=== PATIENT | female | born 1980 | race Two or more races ===

== ENCOUNTER 2024-09-23 21:46 | Emergency (ER) | payer MEDICAID ==
[~2024-09-23] VITALS: Ht 157.5 cm; Wt 81.8 kg
[2024-09-23 21:55] VITALS: BP 120/72; PULSE 115; RESP 18; TEMP 98.9; O2SAT 97
[2024-09-23] MEDS ORDERED: FAMC500T12 PO (22:40)
--- NOTE | 2024-09-23 22:41 | ED.PDOC ---
History of Present Illness(SKN HPI Comments 44 year old female presents to ER with complaints of wound check. Patient states that she has a "cold sore" to left upper lip x 1 day that she would like to have evaluated in ER. Patient also reports a dry cough x 1 day. Denies any pain. Denies use of medications for current symptoms. Denies fever, body aches, chills, sore throat, n/v, shortness of breath, numbness/tingling or any further symptoms/complaints Chief Complaint: Rash Time Seen by MD: 22:04 Primary Care Provider: UNKNOWN History of Present Illness: Nurses Notes, Medications, Allergies Allergies: Coded Allergies: NO KNOWN ALLERGIES (Unverified , 09/23/24) Home Meds Active Scripts Famciclovir (Famciclovir) 500 Mg Tab, 500 MG PO BID for 7 Days, #14 TAB 0 Refills Prov:JOHN ESTRELLA 09/23/24 Information Source: Patient Mode of Arrival: Ambulatory Past Medical History PAST MEDICAL HISTORY: Schizophrenia Surgical History: Cholecystectomy 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 NARROW FABRIC CALENDERER History Family History Family History: Unknown Social History Smoker: Non-Smoker Alcohol: Denies ETOH Use Drugs: Denies Drug Use Lives In: Home Constitutional: denies: chills, diaphoresis, fatigue, fever, malaise, sweats, weakness, others EENTM: reports: others (As stated in HPI) Respiratory: reports: others (As stated in HPI) Cardiovascular: denies: chest pain, dizzy spells, diaphoresis, Dyspnea on exertion, edema, irregular heart beat, left arm pain, lightheadedness, palpitations, PND, syncope, others Gastrointestinal: denies: abdomen distended, abdominal pain, blood streaked bowels, constipated, diarrhea, dysphagia, difficulty swallowing, hematemesis, melena, nausea, poor appetite, poor fluid intake, rectal bleeding, rectal pain, vomiting, others Genitourinary: denies: abnormal vagina bleeding, burning, dyspareunia, dysuria, flank pain, frequency, hematuria, incontinence, pain, , vagina discharge, urgency, others Neurological: denies: dizziness, fainting, headache, left sided numbness, left sided weakness, numbness, paresthesia, pre-existing deficit, right sided numbness, right sided weakness, seizure, speech problems, tingling, tremors, weakness, others Musculoskeletal: denies: back pain, gout, joint pain, joint swelling, muscle pain, muscle stiffness, neck pain, others Integumetry: reports: others (As stated in HPI) Allergic/Immunocompromised: denies: Difficulty Healing, Frequent Infections, Hives, Itching, others Hematologic/Lymphatic: denies: anemia, blood clots, easy bleeding, easy bruising, swollen glands, others Endocrine: denies: excessive hunger, excessive sweating, excessive thirst, excessive urination, flushing, intolerance to cold, intolerance to heat, unexplained weight gain, unexplained weight loss, others Psychiatric: denies: anxiety, bipolar disorder, depression, hopeless, panic disorder, schizophrenia, sleepless, suicidal, others Physical Exam General Appearance: No Apparent Distress, Obese HEENT: PERRL/EOMI, Pharynx Normal, TMs Normal, Other (1- 1cm umbilicated erythemic vesicle with mild crusting noted surrounding tita border of left upper lip. 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 Was a procedure done?: No Sedation Sedation?: No Differential Diagnosis (INTG) Differential Diagnosis: Abrasion Differential Diagnosis: Abscess Differential Diagnosis: Cellulitis X-Ray, Labs, Meds, VS Vital Signs Date Time Temp Pulse Resp B/P (MAP) Pulse Ox O2 Delivery O2 Flow Rate FiO2 09/23/24 21:55 98.9 115 18 120/72 (88) 97 Advised to drink plenty of fluids Patient in no distress during ER visit/prior to discharge Advised to follow up with PCP in 1-2 days Patient verbalized understanding and agreeable with current plan of care Advised to return to ER immediately if symptoms worsen Time of 1ST Reevaluation: 22:02 Reevaluation 1ST: N/A Patient Education/Counseling: Diagnosis, Treatment, Prognosis, Need For Follow Up Family Education/Counseling: No Family Present Departure 1 Departure Time of Disposition: 22:32 Impression: Primary Impression: Herpes labialis Additional Impression: Viral URI Disposition: HOME / SELF CARE / HOMELESS Condition: Stable e-Prescriptions Famciclovir (Famciclovir) 500 Mg Tab 500 MG PO BID for 7 Days, #14 TAB 0 Refills Prov: JOHN ESTRELLA 09/23/24 Discharged With: Self Critical Care Note Critical Care Time?: No Stability Stability form required: No Heart Score Heart Score: Heart Score Response (Comments) Value History N/A 0 EKG N/A 0 Age N/A 0 Risk Factors N/A 0 Troponin N/A 0 Total 0 JOHN ESTRELLA Sep 23, 2024 22:40
== END 2024-09-23 22:51 | disposition home or self-care (01) ==
LOC: ER 21:46
DX: B00.1 Herpesviral vesicular dermatitis (principal); J06.9 Acute upper respiratory infection, unspecified; B97.89 Other viral agents as the cause of diseases classified elsewhere; F20.9 Schizophrenia, unspecified; Z90.49 Acquired absence of other specified parts of digestive tract

== ENCOUNTER 2024-09-24 19:09 | Emergency (ER) | payer MEDICAID ==
[~2024-09-24] VITALS: Ht 157.5 cm; Wt 82.0 kg
[~2024-09-24 19:09] MED LIST: FAMC500T12 PO
[2024-09-24 19:20] VITALS: PULSE 115; RESP 16; O2SAT 98
--- NOTE | 2024-09-24 19:45 | ED.PDOC ---
Psychiatric HPI Comments HPI: HPI: Poor Historian. 44-year-old female homeless brought in by ambulance for mental evaluation. Patient states she has been out in the cold and called 911 because she was cold and the cold made her stress out and she is having psychosis. As she described what psychosis means, she states that she feels stressed out and having some weird thoughts of having sex with the police. Patient denies any suicidal ideation or homicidal ideation or any visual hallucinations or auditory hallucinations. Patient states compliance with her medications of Haldol and Depakote. PMHx: Schizophrenia, Bipolar Disorder, Herpes Labialis PSHx: Cholecystectomy Allergies: None Initial Vital Signs: BP: 156/100 HR: 115 Temp: 98.3F SpO2: 98% RR: 16 REVIEW OF SYSTEMS: CONSTITUTIONAL: Denies acute: fever, diaphoresis, chills, HEAD: Denies acute: headache, photophobia Eyes: Denies acute: Double vision, vision loss, eye pain, eye discharge. EARS: Denies acute: tinnitus, hearing loss, ear discharge, ear pain, THROAT: Denies acute: sore throat, swelling, difficulty swallowing , pain with swallowing, change in voice. NECK: Denies acute: neck pain, neck swelling, stiff neck. HEART: Denies acute : chest pain, palpitations, LUNGS: Denies acute: SOB, wheezing, cough, hemoptysis ABDOMEN: Denies acute: abdominal pain, Nausea, Vomiting, diarrhea, melena , hematemesis, hematochezia SKIN: Denies acute: rash, redness, lesions, itchiness. EXTREMITIES: Denies acute: calf pain, numbness, tingling, weakness, denies pain in extremity. Denies acute: Low back pain. Neuro: Denies acute: focal neurological deficit, motor or sensory focal neurological deficit, tremors, seizure like activity, confusion, dizziness, change in mental status, loss of bowel or bladder function, cauda equina like symptoms. : Denies acute: dysuria, hematuria, flank pain, increase in urinary frequency. PSYCH: Denies acute: hallucination, suicidal ideation, homicidal ideation. FEMALE: Denies acute: abnormal vaginal bleeding, foul odor, unusual discharge. PHYSICAL EXAM: General: no acute distress, awake and alert. Head: normocephalic, atraumatic. Neck: supple, trachea is midline, no swelling. Throat: Normal phonation. Eyes:, no erythema, no purulent discharge, no proptosis, no icterus. Heart: regular rate, regular rhythm, no significant murmur appreciated. Lungs: no apparent respiratory distress, Able to speak in full sentences. No wheezing, no rhonchi, no crackles. No stridors Clear to auscultation bilaterally. Abdomen: non tender to palpation, non distended, soft, no guarding, no rebound, + bowel sounds. Obese Neuro: Awake, Alert, oriented to name, self, situation, follows commands GCS=15. Speech is normal. Skin: no petechia, no purpura, no cyanosis, non-pale, not jaundice. Lower extremities: --trace bilateral- Pitting edema no deformity, no focal swelling, no calf TTP. Makes eye contact. moves all four extremities. Face: no apparent facial droop. Ambulating in the ED independently. 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 Was a procedure done?: No Psych Differential Dx Psych. Differential Dx: Anxiety, Bipolar Disorder, Depression, Hopeless, Panic Disorder, Schizoprenia, Suicidal OD Differential Dx: Alcohol Abuse, Conversion Disorder, Delirium, Depression, Drug Overdose, Encephalopathy, Hallucinations, Homicidal, Panic Disorder, Personality Disorder, Schizophrenia, Substance Abuse, Suicidal Gesture X-Ray, Labs, Meds, VS Vital Signs Date Time Temp Pulse Resp B/P (MAP) Pulse Ox O2 Delivery O2 Flow Rate FiO2 09/24/24 20:48 111 09/24/24 19:47 114 09/24/24 19:20 115 16 98 Room Air* 0 21 09/24/24 19:14 98.3 115 16 156/100 (118) 98 Lab Test 09/24/24 21:39 09/24/24 20:30 09/24/24 19:26 Range/Units Influenza Type A Antigen Pending Influenza Type B Antigen Pending SARS-CoV-2 Antigen (Rapid) Pending Urine Color Pending Urine Clarity Pending Urine pH Pending Urine Specific [place] Pending Urine Protein Pending Urine Ketones Pending Urine Blood Pending Urine Nitrite Pending Urine Bilirubin Pending Urine Urobilinogen Pending Urine Leukocyte Esterase Pending Urine RBC Pending Urine WBC Pending Urine Squamous Epithelial Cells Pending Urine Bacteria Pending Urine Glucose Pending Urine Opiates Screen Pending Urine Fentanyl Screen Pending Urine Barbiturates Screen Pending Urine Phencyclidine Screen Pending Urine Amphetamines Screen Pending Urine Benzodiazepines Screen Pending Urine Cocaine Screen Pending Urine Cannabinoids Screen Pending White Blood Count 10.2 4.4-10.8 10^3/uL Red Blood Count 4.66 4.0-5.20 10^6/uL Hemoglobin 13.3 12.2-16.2 g/dL Hematocrit 40.0 36.0-46.0 % Mean Corpuscular Volume 86.0 80.0-100.0 fL Mean Corpuscular Hemoglobin 28.7 28.0-32.0 pg Mean Corpuscular Hemoglobin Concent 33.3 32.0-36.0 g/dL Red Cell Distribution Width 15.3 H 11.8-14.3 % Platelet Count 316 140-450 10^3/uL Mean Platelet Volume 6.9 6.9-10.8 fL Neutrophils (%) (Auto) 81.8 H 37.0-80.0 % Lymphocytes (%) (Auto) 9.8 L 10.0-50.0 % Monocytes (%) (Auto) 7.3 0.0-12.0 % Eosinophils (%) (Auto) 0.1 0.0-7.0 % Basophils (%) (Auto) 1.0 0.0-2.0 % Neutrophils # (Auto) 8.3 1.6-8.6 10 ^3/uL Lymphocytes # (Auto) 1.0 0.4-5.4 10 ^3/uL Monocytes # (Auto) 0.7 0-1.3 10 ^3/uL Eosinophils # (Auto) 0 0-0.8 10 ^3/uL Basophils # (Auto) 0.1 0-0.2 10 ^3/uL Nucleated Red Blood Cells 0.0 % Sodium Level 137 136-145 mmol/L Potassium Level 2.9 L 3.5-5.1 mmol/L Chloride Level 103 98-107 mmol/L Carbon Dioxide Level 29 20-31 mmol/L Anion Gap 5 5-15 Blood Urea Nitrogen < 5 L 9-23 mg/dL Creatinine 0.64 0.550-1.02 mg/dL Glomerular Filtration Rate Calc 112 >90 mL/min BUN/Creatinine Ratio 7.8 L 10.0-20.0 Serum Glucose 103 74-106 mg/dL Calcium Level 8.8 8.7-10.4 mg/dL Magnesium Level 1.8 1.6-2.6 mg/dL Total Bilirubin 0.3 0.2-1.0 mg/dL Aspartate Amino Transferase (AST) 27 13-40 U/L Alanine Aminotransferase (ALT) 40 7-40 U/L Alkaline Phosphatase 101 46-116 U/L Troponin I High Sensitivity < 3 L </=34 ng/L Total Protein 7.2 5.7-8.2 g/dL Albumin 4.4 3.2-4.8 g/dL Beta HCG, Quantitative 0.0 L 1.5-4.2 mIU/mL Salicylates Level < 3.0 -30 mg/dL Acetaminophen Level < 2.0 L 10.0-20.0 UG/ML Plasma/Serum Blood Alcohol < 3.0 <10 mg/dL Current Medications Medications (Trade) Dose Ordered Sig/Yasmani Route Start Time Stop Time Status Last Admin Sodium Chloride 1,000 ml @ 1,000 mls/hr Q1H ONCE IV 09/24/24 20:00 09/24/24 20:59 DC 09/24/24 20:00 Potassium Chloride (Klor-Con Tablet) 60 meq ONCE ONCE PO 09/24/24 21:00 09/24/24 21:01 DC 09/24/24 21:54 Lorazepam (Ativan Inj) 1 mg ONCE ONCE IV 09/24/24 21:00 09/24/24 21:01 DC 09/24/24 21:54 Ceftriaxone Sodium 50 ml @ 100 mls/hr ONCE ONCE IV 09/24/24 21:30 09/24/24 21:59 DC 09/24/24 21:55 Ondansetron HCl (Zofran Po) 4 mg ONCE ONCE PO 09/24/24 21:30 09/24/24 21:36 DC 09/24/24 21:54 [facility] [id number] [address] Ph: [phone] DIAGNOSTIC IMAGING Diagnostic Imaging Report : [id number] Signed PATIENT: DILEEP FERNANDEZ ACCT: [id number] UNIT: [id number] : 1980 LOC: ER ROOM / BED: / AGE / SEX: 44 / F ADM STATUS: REG ER SERVICE 26 ORDERING PHYSICIAN: MICHELLE CHAN DO PROCEDURE(s): CXRP - CHEST PORTABLE REASON: cough ORDER NUMBER(s): [id number], ACCESSION NUMBER(s): [id number] CHEST RADIOGRAPH Indication:cough Technique: Single frontal view of the chest was obtained Comparison: None FINDINGS: Lines and Tubes: None Lungs: No focal consolidation. Pleura: No effusion. No pneumothorax. Cardiomediastinal contours: Unremarkable Bones: No acute osseous abnormality. IMPRESSION: No acute cardiopulmonary disease. ATED BY: IVETTE TEJADA DO DICTATED DATE/TIME: 09/24/242108 SIGNED BY: IVETTE TEJADA DO SIGNED DATE/TIME: 09/24/242108 Time of 1ST Reevaluation: 20:46 Reevaluation 1ST: Unchanged Patient Education/Counseling: Diagnosis, Treatment Family Education/Counseling: No Family Present Assigned to Dr. Castillo. The care of this patient was transitioned to my colleague Dr. Castillo. Patient is awaiting UA and urine drug screen results nasal swabs results and tele psych evaluation and social service consult and proper disposition after reassessment. Comments Patient presented with the above HPI.---psychiatric---workup was initiated. patient was found with the above mentioned diagnosis. Patient was given: Patient was slightly tachycardic, patient was given normal saline fluid bolus. Patient was anxious. She was given Ativan IV 1 mg. Patient was noted to be coughing. Chest x-ray was obtained and Rocephin 1 g IV was initiated. Patient was found with a low potassium, potassium replacement ordered. Patient ED course and VS have been stabilized. Patient has been reassessed in the ED and remained in a stable condition. Patient has been observed in the ED adequate length of time to insure improvement/stability. Psychiatry was consulted. Still awaiting psychiatry tele psych evaluation and social service consult. All the reports of any imaging studies that were ordered by myself were reviewed by myself. Change of Shift?: Yes (to Dr. Castillo) Departure 1 Departure Time of Disposition: 20:53 Impression: Primary Impression: Homelessness Additional Impressions: Hypokalemia Evaluation by psychiatric service required Encounter for psychiatric assessment Disposition: 30 STILL A PATIENT Condition: Guarded Discharged With: Self Critical Care Note Critical Care Time?: No I personally scribed for MICHELLE CHAN DO ([email or web address]) on 09/24/24 at 19:45. Electronically submitted by Massimo Laird ([email or web address]). I personally scribed for MICHELLE CHAN DO ([email or web address]) on 09/24/24 at 20:21. Electronically submitted by Massimo Laird ([email or web address]). I personally scribed for MICHELLE CHAN DO ([email or web address]) on 09/24/24 at 20:24. Electronically submitted by Massimo Laird ([email or web address]). I personally scribed for MICHELLE CHAN DO ([email or web address]) on 09/24/24 at 21:12. Electronically submitted by Massimo Laird ([email or web address]). MICHELLE CHAN DO Sep 24, 2024 19:45
[2024-09-24] MEDS: SODIUM CHLORIDE 0.9% 1,000 ML IV ONE (20:00)
[2024-09-24 20:28] LABS: Basophils # (auto) 0.1 10 ^3/uL (0-0.2); Eosinophils # (auto) 0 10 ^3/uL (0-0.8); Eosinophils % (auto) 0.1 % (0.0-7.0); Hemoglobin 13.3 g/dL (12.2-16.2); Lymphocytes % (auto) 9.8 % (10.0-50.0); Mean Corpuscular Hemoglobin 28.7 pg (28.0-32.0); Mean Corpuscular Hgb Conc. 33.3 g/dL (32.0-36.0); Monocytes # (auto) 0.7 10 ^3/uL (0-1.3); Monocytes % (auto) 7.3 % (0.0-12.0); Neutrophils # (auto) 8.3 10 ^3/uL (1.6-8.6); Neutrophils % (auto) 81.8 % (37.0-80.0); Platelet Count (auto) 316 10^3/uL (140-450); Red Blood Cells 4.66 10^6/uL (4.0-5.20); Red Cell Distribution Width 15.3 % (11.8-14.3); White Blood Cell 10.2 10^3/uL (4.4-10.8)
[2024-09-24 20:29] LABS: Alanine Aminotransferase 40 U/L (7-40); Albumin 4.4 g/dL (3.2-4.8); Alkaline Phosphatase 101 U/L (46-116); Anion Gap 5 (5-15); Aspartate Aminotransferase 27 U/L (13-40); Bilirubin, Total 0.3 mg/dL (0.2-1.0); Blood Alcohol < 3.0 mg/dL (<10); Calcium 8.8 mg/dL (8.7-10.4); Carbon Dioxide 29 mmol/L (20-31); Chloride 103 mmol/L (98-107); Glucose 103 mg/dL (74-106); Potassium 2.9 mmol/L (3.5-5.1); Sodium 137 mmol/L (136-145); Total Protein 7.2 g/dL (5.7-8.2)
[2024-09-24 20:36] LABS: BUN/Creatinine Ratio 7.8 (10.0-20.0); Blood Urea Nitrogen < 5 mg/dL (9-23)
[2024-09-24 21:03] LABS: Acetaminophen < 2.0 UG/ML (10.0-20.0); Salicylate < 3.0 mg/dL (-30)
--- NOTE | 2024-09-24 21:06 | ECG ---
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
--- NOTE | 2024-09-24 21:11 | DVH ---
CHEST RADIOGRAPH Indication:cough Technique: Single frontal view of the chest was obtained Comparison: None FINDINGS: Lines and Tubes: None Lungs: No focal consolidation. Pleura: No effusion. No pneumothorax. Cardiomediastinal contours: Unremarkable Bones: No acute osseous abnormality. IMPRESSION: No acute cardiopulmonary disease.
[2024-09-24] MEDS: ONDANSETRON ODT 4 MG TAB PO ONE (21:54)
[2024-09-24] MEDS: LORazepam 2MG/ML-1ML VIAL IV ONE (21:54)
[2024-09-24] MEDS: POTASSIUM CHL 20 Meq TABLET PO ONE (21:54)
[2024-09-24] MEDS: cefTRIAXone 1GM/50ML D5W 50 ML IV ONE (21:55)
[2024-09-24 22:03] LABS: Urine Bacteria None Seen /hpf (None Seen)
[2024-09-24 22:30] LABS: Urine Blood 1+ /uL (Negative); Urine Clarity Clear (Clear); Urine Color Colorless (Yellow); Urine Protein, UAD Negative (Negative); Urine Specific Gravity 1.004 (1.001-1.035); Urine Urobilinogen Normal (Negative); Urine WBC 1 /hpf (0 - 5); Urine pH 6.5 (5.0-9.0)
[2024-09-24 22:38] LABS: Amphetamine Screen, Urine Pos (NEGATIVE); Barbiturate Scree,Urine Neg (NEGATIVE); Benzodiazephine Screen, Urine Neg (NEGATIVE); Cannabinoid Screen, Urine Neg (NEGATIVE); Cocaine Screen, Urine Neg (NEGATIVE); Opiate Scree,Urine Neg (NEGATIVE); Phencyclidine Screen, Urine Neg (NEGATIVE)
[2024-09-24 22:43] LABS: COVID19 ANTIGEN SOFIA FIA NEGATIVE (NEGATIVE)
[2024-09-24 23:20] VITALS: PULSE 115; RESP 17; O2SAT 95
[2024-09-24 23:59] LABS: Rapid Influenza A Negative (Negative); Rapid Influenza B Negative (Negative)
[2024-09-25 07:45] VITALS: PULSE 99; RESP 16; O2SAT 99
[2024-09-25] MEDS: SODIUM CHLORIDE 0.9% 1,000 ML IV ONE (08:03)
[2024-09-25 08:29] LABS: Basophils # (auto) 0 10 ^3/uL (0-0.2); Basophils % (auto) 0.4 % (0.0-2.0); Eosinophils # (auto) 0.1 10 ^3/uL (0-0.8); Eosinophils % (auto) 1.1 % (0.0-7.0); Hematocrit 36.8 % (36.0-46.0); Hemoglobin 12.1 g/dL (12.2-16.2); Lymphocytes # (auto) 1.5 10 ^3/uL (0.4-5.4); Lymphocytes % (auto) 19.7 % (10.0-50.0); Mean Corpuscular Hemoglobin 28.3 pg (28.0-32.0); Mean Corpuscular Hgb Conc. 32.8 g/dL (32.0-36.0); Mean Corpuscular Volume 86.2 fL (80.0-100.0); Monocytes # (auto) 0.8 10 ^3/uL (0-1.3); Monocytes % (auto) 10.7 % (0.0-12.0); Neutrophils # (auto) 5.3 10 ^3/uL (1.6-8.6); Neutrophils % (auto) 68.1 % (37.0-80.0); Nucleated Red Blood Cells % 0.1 %; Platelet Count (auto) 250 10^3/uL (140-450); Red Blood Cells 4.26 10^6/uL (4.0-5.20); White Blood Cell 7.7 10^3/uL (4.4-10.8)
[2024-09-25 08:51] LABS: Chloride 110 mmol/L (98-107); Potassium 3.7 mmol/L (3.5-5.1); Sodium 143 mmol/L (136-145)
[2024-09-25 08:52] LABS: Anion Gap 4 (5-15); Calcium 8.1 mg/dL (8.7-10.4); Carbon Dioxide 29 mmol/L (20-31)
[2024-09-25 08:58] LABS: Glucose 87 mg/dL (74-106)
[2024-09-25 08:59] LABS: BUN/Creatinine Ratio 8.6 (10.0-20.0); Blood Urea Nitrogen < 5 mg/dL (9-23)
--- NOTE | 2024-09-25 11:29 | ECG ---
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
--- NOTE | 2024-09-25 11:29 | ECG ---
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
--- NOTE | 2024-09-25 14:59 | DVHINCON2 ---
Date of Service if different f: Sep 25, 2024 Consultation ([place]) Labs Laboratory Tests Test 09/24/24 19:26 09/24/24 20:30 09/24/24 21:39 09/25/24 07:56 Magnesium Level 1.8 mg/dL (1.6-2.6) Total Bilirubin 0.3 mg/dL (0.2-1.0) Aspartate Amino Transf (AST/SGOT) 27 U/L (13-40) Alanine Aminotransferase (ALT/SGPT) 40 U/L (7-40) Alkaline Phosphatase 101 U/L (46-116) Troponin I High Sensitivity < 3 ng/L (</=34) Total Protein 7.2 g/dL (5.7-8.2) Albumin 4.4 g/dL (3.2-4.8) Beta HCG, Quantitative 0.0 mIU/mL (1.5-4.2) Salicylates Level < 3.0 mg/dL (-30) Acetaminophen Level < 2.0 UG/ML (10.0-20.0) Plasma/Serum Blood Alcohol < 3.0 mg/dL (<10) Urine Color Colorless (Yellow) Urine Clarity Clear (Clear) Urine pH 6.5 (5.0-9.0) Urine Specific [place] 1.004 (1.001-1.035) Urine Protein Negative (Negative) Urine Ketones Negative (Negative) Urine Blood 1+ /uL (Negative) Urine Nitrite Negative (Negative) Urine Bilirubin Negative (Negative) Urine Urobilinogen Normal mg/dL (Negative) Urine Leukocyte Esterase Negative /uL (Negative) Urine RBC 1 /hpf (0 - 4) Urine WBC 1 /hpf (0 - 5) Urine Squamous Epithelial Cells Few /hpf (<5) Urine Bacteria None seen /hpf (None Seen) Urine Glucose Normal mg/dL (Normal) Urine Opiates Screen Neg (NEGATIVE) Urine Fentanyl Screen Neg (NEGATIVE) Urine Barbiturates Screen Neg (NEGATIVE) Urine Phencyclidine Screen Neg (NEGATIVE) Urine Amphetamines Screen Pos (NEGATIVE) Urine Benzodiazepines Screen Neg (NEGATIVE) Urine Cocaine Screen Neg (NEGATIVE) Urine Cannabinoids Screen Neg (NEGATIVE) Influenza Type A Antigen Negative (Negative) Influenza Type B Antigen Negative (Negative) SARS-CoV-2 Antigen (Rapid) Negative (NEGATIVE) White Blood Count 7.7 10^3/uL (4.4-10.8) Red Blood Count 4.26 10^6/uL (4.0-5.20) Hemoglobin 12.1 g/dL (12.2-16.2) Hematocrit 36.8 % (36.0-46.0) Mean Corpuscular Volume 86.2 fL (80.0-100.0) Mean Corpuscular Hemoglobin 28.3 pg (28.0-32.0) Mean Corpuscular Hemoglobin Concent 32.8 g/dL (32.0-36.0) Red Cell Distribution Width 15.0 % (11.8-14.3) Platelet Count 250 10^3/uL (140-450) Mean Platelet Volume 6.6 fL (6.9-10.8) Neutrophils (%) (Auto) 68.1 % (37.0-80.0) Lymphocytes (%) (Auto) 19.7 % (10.0-50.0) Monocytes (%) (Auto) 10.7 % (0.0-12.0) Eosinophils (%) (Auto) 1.1 % (0.0-7.0) Basophils (%) (Auto) 0.4 % (0.0-2.0) Neutrophils # (Auto) 5.3 10 ^3/uL (1.6-8.6) Lymphocytes # (Auto) 1.5 10 ^3/uL (0.4-5.4) Monocytes # (Auto) 0.8 10 ^3/uL (0-1.3) Eosinophils # (Auto) 0.1 10 ^3/uL (0-0.8) Basophils # (Auto) 0 10 ^3/uL (0-0.2) Nucleated Red Blood Cells 0.1 % Sodium Level 143 mmol/L (136-145) Potassium Level 3.7 mmol/L (3.5-5.1) Chloride Level 110 mmol/L (98-107) Carbon Dioxide Level 29 mmol/L (20-31) Anion Gap 4 (5-15) Blood Urea Nitrogen < 5 mg/dL (9-23) Creatinine 0.58 mg/dL (0.550-1.02) Glomerular Filtration Rate Calc 114 mL/min (>90) BUN/Creatinine Ratio 8.6 (10.0-20.0) Serum Glucose 87 mg/dL (74-106) Calcium Level 8.1 mg/dL (8.7-10.4) Test 09/25/24 11:48 Stool for White Cells Rare Appetite: Fair Appearance: Stated age, Groomed, Clean Psychomotor activity: WNL Behavioral: Cooperative Eye contact: Appropriate Speech: WNL Affect: Mood Congruent Mood: Anxious Thought processes: Linear/Goal-directed Thought content: WNL Suicidal ideations: Absent Homicidal ideations: Absent Orientation: Person, Place, Time, Situation Memory intact: Recent Intellect: Average Abstractability: WNL Concentration: Adequate Attention: Adequate Judgement: WNL Insight: Fair Vitals Vital Signs Date Time Temp Pulse Resp B/P (MAP) Pulse Ox O2 Delivery O2 Flow Rate FiO2 09/25/24 12:00 99.0 101 20 92/52 (65) 98 99.0 09/25/24 07:45 Room Air* 0 21 Treatment plan discussed: With staff Medication adjusted: No Diagnosis: unspecified psychosis, methamphetamine abuse Plan : Pt denies Si/Hi. She has a railway patrol officer to help with housing and outpatient follow up. She may discharge and follow up tourist information officer. Continue home meds of Haldol deaconate monthly and Depakote 1,000mg po qhs. History of Present Illness Reason for Consult : suicidal ideation HPI : This is a 44-year-old homeless female reporting hx of bipolar and schizophrenia presented via ambulance reporting suicidal ideation yesterday, 09/24/24. On evaluation via telepsychiatry today, she denies suicidal/homicidal ideation. She reports only wanting a place to sleep for the night. She spoke to railway patrol officer who will connect her to housing and program. She also denies auditory/visual hallucinations or paranoia. She reports appetite and sleep are intact. She denies feeling depressed, hopeless or anhedonia. Past Psychiatric History : She denies past psych admissions and holds. She does report being on parole, likely receiving mental health services while incarcerated. She is on a long-acting injection, Haldol decanoate monthly, reports last injection from pharmacy yesterday on 09/24/24. She also reports compliance to Depakote 1000mg daily. She denies past suicide attempts Past Medical History : She denies Social History : She is homeless, single. She has one daughter living with her father. She has unknown psychiatric history. She uses methamphetamine for some years, she denies daily use or IV use. She denies other drugs and alcohol. toxicology is positive for amphetamines. SACHIN GONGORA DNP Sep 25, 2024 14:59
[2024-09-25] MEDS: CIPROFLOXACIN HCL 500 MG TAB PO ONE (15:10)
[2024-09-25] MEDS ORDERED: AZIT500T66 PO (22:25)
[2024-09-25] MEDS ORDERED: CIPROFLOXACIN HCL 500 MG TAB PO ONE (22:30)
[2024-09-25] MEDS: AZITHROMYCIN 250 MG TAB PO ONE (22:37)
[2024-09-26 07:15] VITALS: PULSE 96; RESP 16; O2SAT 97
[2024-09-26 08:48] VITALS: BP 116/59; PULSE 94; RESP 16; TEMP 98.7; O2SAT 97
[2024-09-26] MEDS ORDERED: AZITHROMYCIN 250 MG TAB PO ONE (09:30)
== END 2024-09-26 08:55 | disposition home or self-care (01) ==
LOC: ER 19:09 → EDBD 19:09 → ER 09-26 08:55
DX: E87.6 Hypokalemia (principal); R10.2 Pelvic and perineal pain; F15.10 Other stimulant abuse, uncomplicated; F20.9 Schizophrenia, unspecified; F31.9 Bipolar disorder, unspecified; I48.91 Unspecified atrial fibrillation; R45.851 Suicidal ideations; Z00.8 Encounter for other general examination; Z59.00 Homelessness unspecified; Z79.899 Other long term (current) drug therapy; Z90.49 Acquired absence of other specified parts of digestive tract; Z20.822 Contact with and (suspected) exposure to COVID-19
CPT/HCPCS: 36415; 71045; 80048; 80053; 80307; 80320; 80329; 81001; 83735; 84484; 84702; 85025; 85048; 87045; 87426; 87804; 93005; 96361; 96365; 96375; 99285; J0696; J2060; J7030; Q0162